=== PATIENT | female | born 1965 | race Caucasian/White ===

== ENCOUNTER → 2023-06-01 14:07 | Outpatient (REF) | payer BC, SELFPAY | LOC: WDC 14:07 | PROVIDERS: ATTENDING PHYSICIAN Obstetrics & Gynecology Gynecology; FAMILY PHYSICIAN Internal Medicine | DX: Z78.0 Asymptomatic menopausal state (principal); Z12.31 Encounter for screening mammogram for malignant neoplasm of breast | CPT/HCPCS: 77063; 77067; 77080 ==

== ENCOUNTER → 2024-06-07 16:01 | Outpatient (REF) | payer BC, SELFPAY | LOC: WDC 16:01 | PROVIDERS: ATTENDING PHYSICIAN Obstetrics & Gynecology Gynecology; FAMILY PHYSICIAN Internal Medicine | DX: Z12.31 Encounter for screening mammogram for malignant neoplasm of breast (principal) | CPT/HCPCS: 77063; 77067 ==

== ENCOUNTER 2024-08-29 15:01 | Inpatient (IN) | payer BC, SELFPAY ==
[2024-08-29 11:35] VITALS: BP 155/89
[2024-08-29 12:02] LABS: % Basophils 0.2 % (0-2); % Immature Granulocytes 0.5 % (0-0.5); % Lymphocytes 21.3 % (20.5-51.1); % Monocytes 7.6 % (1.7-9.3); % Neutrophils 67.4 % (42.2-75.2); Absolute Eosinophils 0.1 10^3/uL (0-0.7); Absolute Lymphocytes 0.9 10^3/uL (1.2-3.4); Absolute Monocytes 0.3 10^3/uL (0.1-0.6); Hematocrit 41.2 % (37.0-47.0); Hemoglobin 14.1 g/dL (12.0-16.0); Mean Corp Hgb Conc. 34.2 g/dL (33.0-37.0); Mean Corpuscular Hgb 31.3 pg (27.0-31.0); Mean Corpuscular Volume 91.6 fL (81.0-99.0); Mean Platelet Volume 9.2 fL (7.4-10.4); Nucleated Red Blood Cells % 0 %; Platelet Count 143 10^3/uL (130-400); Red Cell Dist. Width 11.9 % (11.5-14.5); White Blood Cell Count 4.4 10^3/uL (4.8-10.8)
--- NOTE | 2024-08-29 12:32 | ED.CVA ---
Addendum entered and electronically signed by Sky Cole MD 08/29/24 14:11:
I did discuss with neurosurgery who is okay with admission here. recommended MRI with and without as well at CT c/a/p. hospitalist updated.
Original Note:
History of Present Illness
General
Chief Complaint: CVA/TIA Symptoms
Time Seen by Provider: 08/29/24 12:04
Onset of Stroke Symptoms
Onset of symptoms known: No
Time pt last seen normal is known: No
History of Present Illness
History of Present Illness:
Patient is a 59-year-old woman with history of hypertension, hyperlipidemia presenting to the emergency department with speech problems. Patient states that about 2 weeks ago she started noticing that she had word finding difficulty and had to slow
down to speak. She states that she was having difficulty with texting and speaking. She also notes occasional dysarthria. Over the past few days she noticed difficulty swallowing. No history of strokes. No numbness tingling. No weakness.
Past History
Past History
ED Past Medical History: Other (mvp, chronic migraine headaches)
ED Past Surgical History: Other (Repair of pectus excavatum)
Social History
Tobacco: Non-smoker
Alcohol: None
Drug: None
Personal:
Living: with family
Employment: Employed
Family History
Family History: Hypertension
Phy Exam
Physical Exam
Physical Exam:
GENERAL: in no acute distress
HEENT: normocephalic, extraocular movements intact, moist oral mucosa
NECK: normal inspection
RESPIRATORY: no respiratory distress, clear to auscultation bilaterally
CARDIOVASCULAR: regular rate and rhythm
ABDOMEN/: soft, non-distended, non-tender to palpation, no rebound or guarding
EXTREMITIES: non-tender, no edema/swelling
NEUROLOGIC: alert and oriented x 3, cranial nerves II-XII intact, right upper extremity strength 5/5, left upper extremity strength 5/5, right lower extremity strength 5/5, left lower extremity strength 5/5, normal sensation to light touch, normal
nwzwwz-af-hnvo and pplo-hz-efnf, gait not tested formally
SKIN: warm
NIH Stroke Score
Level of Consciousness: 0 - Alert
LOC questions: 0-Answers both correctly
LOC Commands: 0-Performs both correctly
Best Gaze: 0-Normal
Visual Gasca: 0=Normal, no visual loss
Facial palsy: 0=Normal, symmetrical
Motor - Right Arm: 0=No drift 10 seconds
Motor - Left Arm: 0=No drift 10 seconds
Motor - Right Le-No drift 5 seconds
Motor - Left Le-No drift 5 seconds
Limb Ataxia: 0-Absent
Sensation: 0-Normal
Best Language: 1-Mild aphasia
Dysarthria: 0-Normal
Extinction and Inattention: 0-No abnormality
Total Score:: 1
Course
Orders/Labs/Results
Orders:
Orders
08/29/24 11:[address] [CT Head W/o Iv Contrast] Urgent
Comment:
Reason For Exam: slurred speech
08/29/24 11:46
Complete Blood Count/With Diff Urgent
Comprehensive Metabolic Panel Urgent
08/29/24 12:37
Electrocardiogram (*1) Urgent
Reason for Study: TIA/Stroke
EKG- Treatment ONCE
Abnormal Lab Results
08/29/24
11:46
WBC 4.4 L 10^3/uL
(4.8-10.8)
MCH 31.3 H pg
(27.0-31.0)
Absolute Lymphs (auto) 0.9 L 10^3/uL
(1.2-3.4)
Glucose 110 H mg/dl
(70-99)
08/29/24 11:46
08/29/24 11:46
Vital Signs
Initial and Last Documented VS:
Initial Vital Signs
Temp Pulse Resp BP Pulse Ox
98.4 F 73 18 155/89 98
08/29/24 11:35 08/29/24 11:35 08/29/24 11:35 08/29/24 11:35 08/29/24 11:35
Last Documented Vital Signs
Temp Pulse Resp BP Pulse Ox
98.4 F 63 16 137/80 97
08/29/24 11:35 08/29/24 12:45 08/29/24 12:45 08/29/24 12:39 08/29/24 12:45
MDM/Problems Addressed
Differential Diagnosis Includes:
Patient is a 59-year-old woman with history of hypertension, hyperlipidemia presenting to the emergency department with word finding difficulty and now difficulty with swallowing. On arrival vitals are unremarkable and exam does show mild aphasia.
Concern for CVA vs mass. Will obtain blood work and CT scan as well as EKG. Patient will need admission for further evaluation.
*Critical Care Note
Total Time (30-74mins, 75-104mins- exclusive of procedures): Not Applicable
Update Note
Update Note:
CT scan per my interpretation with a mass in the left parietal lobe. Per the official read it is about 3.8 cm. There is no shift or associated hemorrhage. Patient updated of these findings. Discussed with hospitalist who admitted patient to
their service.
ED Attending Note
-
Portions of this chart may have been created with voice recognition software.� Occasional wrong word or��sound alike� substitutions may have occurred due to the inherent limitations of voice recognition software.
Discharge Plan
Departure
Patient Disposition: Admit
Date of Disposition: 08/29/24
Time of Disposition: 13:55
Presentation/result/management discussed w/ accepting MD/DO: Hospitalist
Discharge Problem:
Brain mass
Prescriptions:
No Action
verapamil 120 MG tablet extended release
120 mg PO DAILY
alprazolam [Xanax XR] 2 MG tablet extended release 24 hr
1 mg PO DAILY
Lexapro
20 mg PO DAILY
mlztldumqd-rehjbodgsfhuh-asnt 1 TAB tablet
1 - 2 tab PO Q6HPRN PRN (Reason: headache) Qty: 20 0RF
ondansetron 4 MG tablet,disintegrating
8 mg PO Q8H PRN (Reason: nausea vomiting) Qty: 15 0RF
Referrals:
Kiki Miranda MD [Family Provider, Internal Medicine]
Interventions
Interventions:
*Risk Screen - Suicide Last Done: 08/29/24 11:35
*General Assessment Last Done: 08/29/24 11:35
*Neglect/Abuse Screening Last Done: 08/29/24 11:35
*ED- Fall Risk Assessment Last Done: 08/29/24 11:35
Discharge Date and Time
Print Language: PAKISTANI
[2024-08-29 12:34] LABS: ALT (SGPT) 19 U/L (0-35); AST (SGOT) 28 U/L (14-36); Albumin 4.9 g/dl (3.5-5.0); Alkaline Phosphatase 53 U/L (38-126); Blood Urea Nitrogen 15 mg/dl (7-17); Calcium 9.6 mg/dl (8.4-10.2); Carbon Dioxide 29 mmol/L (22-30); Chloride 105 mmol/L (98-107); Glucose 110 mg/dl (70-99); Potassium 4.4 mmol/L (3.5-5.1); Sodium 141 mmol/L (135-145); Total Bilirubin 0.9 mg/dl (0.2-1.3); eGFR > 60.00
[2024-08-29 12:39] VITALS: BP 137/80
[2024-08-29 14:08] VITALS: BP 169/82
--- NOTE | 2024-08-29 14:17 | HPS.HSE ---
Addendum entered and electronically signed by Rob Wise MD 08/30/24 08:52:
MR Brain W/o  With Contrast
CLINICAL INDICATION: Sxtic Lt parietal Gualberto complex mass
TECHNIQUE: 3 Sherice. Unenhanced and enhanced MRI imaging of the brain was performed. Precontrast sagittal and axial T1, as well as axial fast spin echo T2, FLAIR, and diffusion images were obtained. Postcontrast T1 axial and coronal images were also
obtained.
COMPARISON: CT head 08/29/2024
FINDINGS:
Left parietal lobe mass measures 3.7 x 3.6 x 3.5 cm, heterogeneously T1 hypointense and T2 hyperintense with scattered peripheral hemosiderin components and thick irregular rim enhancement. Minimal lateral eccentric component of restricted
diffusion. Prominent surrounding vasogenic edema.
The ventricles and sulci are normal in size and configuration. There is no midline shift, or extra axial collection.
There is no additional abnormal parenchymal or meningeal enhancement. There is no abnormal signal intensity on diffusion-weighted images to suggest acute infarct.
The vascular structures at the skull base are unremarkable, as far as visualized. The sinuses and mastoids are clear.
IMPRESSION:
3.7 cm rounded rim-enhancing left parietal lobe mass with surrounding vasogenic edema, most in keeping with neoplasm such as primary glioma versus metastasis (less likely). No midline shift or herniation. Of note, no other apparent primary neoplasm
was identified on same-day staging CT.
No additional enhancing intracranial lesions.
Results sent to Dr. Oliveira 08/29/2024 at 9:43 PM.
Electronically signed by Dhruv Mensah, 08/29/2024 9:44 PM
Original Note:
Family Physician
-
Family Physician: Kiki Miranda
Chief Complaint
-
abnormal speech
History of Present Illness
59F HX hypertension, hyperlipidemia seen at ER:
- pw speech problems
- about 2 weeks ago she started noticing that she had word finding difficulty and had to slow down to speak. S
- also difficulty with texting and speaking
- reports occasional dysarthria.
- last few days she noticed difficulty swallowing
- No numbness tingling. No weakness.
- No prior strokes.
Medical History
Past Medical History
Past Medical History: Reports HTN, Hypercholesterolemia, Valvular Disease (MVP ) and Psychiatric (anxiety /depression )
Additional Past Medical History:
chronic migraine headaches
Past Surgical History: Reports Orthopedic (Repair of pectus excavatum)
Social History
Tobacco: Non-smoker
Alcohol: None
Personal:
Living: With Family
Family History
Family History: Not pertinent
Allergies / Home Medications
Allergies reflects when Allergies were last updated in [facility].
Home Medications with original date entered in [facility]
Allergy/Medication List:
Allergies
Allergy/AdvReac Type Severity Reaction Status Date / Time
No Known Allergies Allergy Verified 01/28/22 18:59
Home Medications
Lexapro 20 mg PO DAILY 09/08/12
alprazolam 2 mg tablet,extended release 24 hr (Xanax XR) 1 mg PO DAILY 09/08/12
zbsxsqnrwl-xzrzznuaxnoei-qrqfivcc 50 mg-325 mg-40 mg tablet 1 - 2 tab PO Q6HPRN PRN headache #20 tabs 09/08/12
ondansetron 4 mg disintegrating tablet 8 mg (2 x 4 mg) PO Q8H PRN nausea vomiting #15 tabs 09/08/12
verapamil 120 mg tablet,extended release 120 mg PO DAILY 09/08/12
If medication reconciliation has not been performed, why?: Other (pending reconciliation )
Review of Systems
-
Constitutional: Reports No Symptoms
EENT: Reports No Symptoms
Respiratory: Reports No Symptoms
Cardiac: Reports No Symptoms
Abdomen/GI: Reports No Symptoms
: Reports No Symptoms
Musculoskeletal: Reports No Symptoms
Skin: Reports No Symptoms
Neurological: Reports See HPI
Endocrine: Reports No Symptoms
Hematologic/Lymphatic: Reports No Symptoms
Psych: Reports No Symptoms
Physical Exam
Vital Signs
Vital Signs
Temp Pulse Resp BP Pulse Ox
98.4 F 63 16 137/80 97
08/29/24 11:35 08/29/24 12:45 08/29/24 12:45 08/29/24 12:39 08/29/24 12:45
Physical Exam
General: Well Developed, Well Nourished and No Apparent Distress
HEENT: NormoCephalic, Moist mucous membranes and Atraumatic
Respiratory: Clear
Cardiac: S1/S2 and Regular Rhythm; No Murmur or Rub
GI: Soft, Non Tender, Non Distended and Normal Bowel Sounds; No Organomegaly
Rectal: Deferred by Provider
Musculoskeletal: No Clubbing, No Cyanosis and No Edema
Skin: No Rash
Neuro: Other (see NIH score )
Laboratory Results
-
08/29/24 11:46
08/29/24 11:46
Laboratory Results
Total Bilirubin 0.9 mg/dl (0.2-1.3) 08/29/24 11:46
AST 28 U/L (14-36) 08/29/24 11:46
ALT 19 U/L (0-35) 08/29/24 11:46
Alkaline Phosphatase 53 U/L (38-126) 08/29/24 11:46
Data Reviewed
-
CT Scan: Report Reviewed by me
Lab Data: Labs Reviewed by me
Impression/Plan
-
Vital Signs
Temp Pulse Resp BP Pulse Ox
98.4 F 63 16 137/80 97
08/29/24 11:35 08/29/24 12:45 08/29/24 12:45 08/29/24 12:39 08/29/24 12:45
Abnormal Lab Results
08/29/24
11:46
WBC 4.4 L
MCH 31.3 H
Absolute Lymphs (auto) 0.9 L
Glucose 110 H
HCT
- s a low-attenuation mass with a high attenuation rim in the left lateral parietal lobe measuring approximately 3.8 cm.
- The ventricles and cortical sulci are normal in size and position.
- no shift of midline structures. There is no evidence of hemorrhage.
- The skull is intact. Paranasal sinuses are clear.
Pending CT Chest/ Abdomen and pelvis
NIH score by ER
Level of Consciousness: 0 - Alert
LOC questions: 0-Answers both correctly
LOC Commands: 0-Performs both correctly
Best Gaze: 0-Normal
Visual Gasca: 0=Normal, no visual loss
Facial palsy: 0=Normal, symmetrical
Motor - Right Arm: 0=No drift 10 seconds
Motor - Left Arm: 0=No drift 10 seconds
Motor - Right Le-No drift 5 seconds
Motor - Left Le-No drift 5 seconds
Limb Ataxia: 0-Absent
Sensation: 0-Normal
Best Language: 1-Mild aphasia
Dysarthria: 0-Normal
Extinction and Inattention: 0-No abnormality
Total Score:: 1
NO PRIOR hospitalist admission:
ASSESSMENT & PLAN
Lt parietal lobe 3.8cm complex mass 3.8 cm
- acute speech and language dysfunctiiion
- No shift of midline structures.
- No evidence of hemorrhage.
- Associated speech and language dysfunction with NIH score one
- CT Chest/ Abdomen and pelvis
- Brain MRI in AM
- Sz prophylaxis with Keppra - case , ER d/w N Surgeon
- Neuro surgeon consulted - suggest to keep in DH and further w/u
- Speech to eval and Tx - holding off PO diet till evaluation
Essential HTN
- Pending Rx reconciliation ( on Verapamil ? )
Hyperlipidemia
- Pending Rx reconciliation ( On Rosuvastatin ? )
Depression
- Pending Rx reconciliation (on Lexapro , Xanax PRN ? )
- Hold Lexapro due to risk of lowering Sz threshold of SSRI
DVT Px: SCD
Full Code:
IP TLM
[2024-08-29 15:04] VITALS: BMI 20.1
[2024-08-29] MEDS: OMNIPAQUE 50 ML PO (16:05)
[2024-08-29 16:27] VITALS: BP 154/80; BMI 19.0
[2024-08-29 19:25] VITALS: BP 154/87
[2024-08-29] MEDS: KEPPRA 500 MG PO (21:21)
[2024-08-29] MEDS: CRESTOR 5 MG PO (21:21)
[2024-08-29 23:22] VITALS: BP 145/86
--- NOTE | 2024-08-30 00:15 | W.PN.UPDATE ---
Update Note
Progress Note Update
MRI Brain, completed. Results sent to Dr. Oliveira 08/29/24 @ 9:[address] Wise aware of results, no new orders at this time.
[2024-08-30] MEDS: CALAN EXTENDED RELEASE 120 MG PO (00:58)
[2024-08-30] MEDS: XANAX 0.5 MG PO ×2 (01:00→12:10)
[2024-08-30 03:18] VITALS: BP 110/71
[2024-08-30 07:00] VITALS: BP 119/79
[2024-08-30 07:30] LABS: Blood Urea Nitrogen 13 mg/dl (7-17); Calcium 9.6 mg/dl (8.4-10.2); Carbon Dioxide 32 mmol/L (22-30); Chloride 104 mmol/L (98-107); Estimated Creatinine Clearance 68 ml/min; Glucose 93 mg/dl (70-99); Potassium 4.2 mmol/L (3.5-5.1); Sodium 142 mmol/L (135-145); eGFR > 60.00
[2024-08-30 07:31] LABS: % Basophils 0.9 % (0-2); % Eosinophils 4.9 % (0-6); % Immature Granulocytes 0.4 % (0-0.5); % Lymphocytes 22.5 % (20.5-51.1); % Monocytes 8.6 % (1.7-9.3); % Neutrophils 62.7 % (42.2-75.2); Absolute Eosinophils 0.2 10^3/uL (0-0.7); Absolute Monocytes 0.4 10^3/uL (0.1-0.6); Absolute Neutrophils 2.8 10^3/uL (1.4-6.5); Hematocrit 40.9 % (37.0-47.0); Hemoglobin 13.9 g/dL (12.0-16.0); Mean Corpuscular Hgb 31.2 pg (27.0-31.0); Mean Corpuscular Volume 91.9 fL (81.0-99.0); Mean Platelet Volume 9.4 fL (7.4-10.4); Nucleated Red Blood Cells % 0 %; Platelet Count 144 10^3/uL (130-400); Red Blood Cell Count 4.45 10^6/uL (4.20-5.40); Red Cell Dist. Width 11.9 % (11.5-14.5); White Blood Cell Count 4.5 10^3/uL (4.8-10.8)
[2024-08-30] MEDS: KEPPRA 500 MG PO (08:25)
[2024-08-30] MEDS: CALAN EXTENDED RELEASE PO (09:05)
[2024-08-30] MEDS: XANAX PO (09:06)
--- NOTE | 2024-08-30 09:17 | W.PN.HOSP.TC ---
Today's Communication/Plan
-
Await neurosurgery input
Consulted oncology
Assessment / Plan
Assessment / Plan
Physical Exam
General: Well Developed, Well Nourished and No Apparent Distress
HEENT: Normocephalic, Moist mucous membranes and Atraumatic
Respiratory: Clear
Cardiac: S1/S2 and Regular Rhythm; No Murmur or Rub
GI: Soft, Non Tender, Non Distended
Rectal: Deferred by Provider
Musculoskeletal: No Clubbing, No Cyanosis and No Edema
Skin: No Rash
Neuro:AAOX3, she followed commands, non focal, speech is coherent but seems to struggle to find words at time.
Psych: calm.
A/P:
# 3.7 cm rounded rim-enhancing left parietal lobe mass with surrounding vasogenic edema, most in keeping with neoplasm such as primary glioma versus metastasis (less likely). No midline shift or herniation. Of note, no other apparent primary
neoplasm was identified on same-day staging CT. No additional enhancing intracranial lesions.Lt parietal lobe 3.8cm complex mass 3.8 cm
She was noticed to have word finding difficulty, also problems in writing.
- CT Chest/ Abdomen and pelvis: no evidence of primary lesion.
- Sz prophylaxis with Keppra - case , ER d/w N Surgeon
- Neuro surgeon consulted - suggest to keep in DH and further w/u
- Speech to eval and Tx -ok for diet
- Consulted oncology
- will likely need steroid but will wait until consultants evaluate the pt.
# Essential HTN
#Hyperlipidemia
- Pending Rx reconciliation ( On Rosuvastatin ? )
# Depression
Mood is cooperative.
Total time spent to see the patient, examine the patient, review data and lab result, discuss treatment plan with patient, nursing staff around 55 minutes
Anticipated Discharge: Within 24 hours
Subjective/Interval History
-
Date of Service: August 30, 2024
No chest pain
No sob
Speech is the same
No headache
Objective Data
-
Labs:
Laboratory Results
08/30/24
06:03
WBC 4.5 L
Hgb 13.9
Hct 40.9
Plt Count 144
Sodium 142
Potassium 4.2
Chloride 104
Carbon Dioxide 32 H
BUN 13
Creatinine 0.7
Glucose 93
Calcium 9.6
Vital Signs:
Vital Signs
Temp Pulse Resp BP Pulse Ox
99.7 F 79 20 119/79 96
08/30/24 07:00 08/30/24 07:00 08/30/24 07:00 08/30/24 07:00 08/30/24 07:00
I&O
08/29/24 08/30/24 08/31/24
06:59 06:59 06:59
Intake Total 720 / 720
Balance 720 / 720
[2024-08-30 10:14] VITALS: BP 116/69; BP 127/76; PULSE 78; O2SAT 98
--- NOTE | 2024-08-30 11:11 | CON.NS ---
Consultation
-
Date/Time Consultation Performed: 08/30/24
Chief Complaint
-
brain tumor, speech changes
History of Present Illness
This is a 59 yo female who presented with 2 weeks of speech difficulties. She presented to the ED yesterday due to these complaints. A CT head was completed which showed a left frontal mass. Ct C/A/P was completed which showed no primary. MRI brain
has been completed and is available to review. She denies any Ue/Le weakness. She denies any n/t in her UE or LE's.
Review of Systems
-
10 pt ROS was completed and is negative except as stated
Medication and Allergies
Home Medications
Home Medications
�Medication �Instructions �Recorded
escitalopram oxalate 10 mg tablet 10 mg PO DAILY 09/08/12
(Lexapro)
verapamil 120 mg tablet,extended 120 mg PO HS 09/08/12
release
alprazolam 1 mg tablet,extended 1 mg PO HS 08/29/24
release 24 hr (Xanax XR)
ascorbic acid (vitamin C) 500 mg 500 mg PO DAILY 08/29/24
tablet (Vitamin C)
cholecalciferol (vitamin D3) 25 25 mcg PO DAILY 08/29/24
mcg (1,000 unit) tablet (Vitamin
D3)
cyanocobalamin (vitamin B-12) 1,000 mcg PO DAILY 08/29/24
1,000 mcg tablet
rosuvastatin 5 mg tablet (Crestor) 5 mg PO HS 08/29/24
Allergies
Allergies
Allergy/AdvReac Type Severity Reaction Status Date / Time
No Known Allergies Allergy Verified 01/28/22 18:59
Physical Exam
-
Exam:
AAoX3
CN's 2-12 intact
MAEx4 equally
sensory intact
speech with some mild aphasia
MRi brain shows 3.1x3.2x3.7 cm left frontal brain tumor with peripheral enhancement and surrounding edema. There is a MCA en passage branch at the inferior border, and some involvement of the sylvian veins
Problems
-
Problem Status Onset Code
Brain mass Acute G93.89
Assessment / Plan
-
Brain tumor
-suspect this is a Glioblastoma given imaging characteristics
-This requires surgical intervention. D/W patient role of resection.I explained the risks of surgery to her. She wishes to discuss with her family her options at this time
-rec to start decadron 4 q 6 now
-continue keppra
-if she desires surgery at [facility] we will need to transfer, please notify familys decision
[2024-08-30] MEDS: LEXAPRO 10 MG PO (11:14)
--- NOTE | 2024-08-30 11:14 | PTOTSP ---
Speech Therapy Assessment
Swallowing deemed wfl with no overt signs of aspiration. No obvious oral motor weakness or disorganized oral processing/swallow sequence.
Though communication is wfl, the patient presents with evidence for mild expressive and receptive language deficits including phonemic paraphasias, anomia in conversation, agraphia and high level auditory/reading comprehension and suspicion for mild
verbal apraxia.
Recommend:
1. Regular solids and thin liquids
2. General precautions (upright, clear mouth before liquids, no talking when eating)
3. Outpatient speech therapy to further assess and address language/speech deficits of which patient is interested in pursuing. Patient was provided with brochure on outpatient brain injury program and alerted CM of recommendations.
[2024-08-30 11:30] VITALS: BP 155/75
[2024-08-30] MEDS: DECADRON 4 MG PO ×2 (12:08→18:03)
--- NOTE | 2024-08-30 12:39 | CON.ONC ---
Consultation
-
Date Consultation Requested: 08/29/24
Date Consultation Performed: 08/30/24
Requesting Provider: Rob huynh
Performing Provider: Carmen Diaz
Reason for Consultation: Intracranial mass
Impression
Impression
59-year-old female presented for 2 weeks of speech difficulties, CT head demonstrated a left parietal mass. MRI brain demonstrated 3.7 cm round rim-enhancing left parietal lobe mass with surrounding vasogenic edema. CT abdomen pelvis with IV
contrast demonstrated no additional masses or metastasis. Working diagnosis is this is likely a primary intracranial malignancy, high-grade glioblastoma is suspected.
Plan
Plan
#Primary intracranial malignancy
#Word finding difficulties
Patient presented with 2 weeks of speech, texting, writing, spelling, comprehension, recall difficulties in addition to mild headaches. Denies numbness tingling or weakness on the right side
CT Emergency Department demonstrated left parietal lobe mass
MRI brain with and without contrast demonstrated 3.7 cm round rim-enhancing left parietal lobe mass with surrounding vasogenic edema. No midline shift or herniation
CT abdomen pelvis with IV contrast did not demonstrate any additional masses or metastatic lesions
Cannot be sure of etiology without pathology, based off imaging, suspect this is likely primary glioblastoma
Her symptoms are consistent with location of intracranial malignancy. Believe they are secondary to mass effect of lesion
Neurosurgery consulted and following
Will initiate patient on steroids per neurosurgery
Patient reports no seizures, currently receiving prophylactic Keppra, will continue
Patient will require craniotomy and resection for pathology and cytogenetics
Patient currently pending decision whether she would like to be transferred to [facility], discharged and follow-up with [facility], or be discharged and get a second opinion to follow-up elsewhere for surgery
Explained patient will likely require adjuvant regiment of chemotherapy (TMZ) and radiation
Patient reports she lives in [place], and would be willing to follow-up with [facility] and [facility] radiation oncology for adjuvant treatment
Will continue to follow along
Patient History
History of Present Illness
59-year-old female past close of hypertension, hyperlipidemia presented to [facility] emergency department with approximately 2 weeks of speech difficulties, she also endorses comprehension difficulties, recall, difficulty with spelling, writing and
texting. Patient also endorsed occasional mild headaches. In the emergency department patient received CT head without IV contrast which demonstrated low attenuating mass in the left parietal lobe measuring 3.8 cm. Patient received brain MRI with
and without contrast which demonstrated 3.7 cm rounded rim-enhancing left parietal lobe mass with surrounding vasogenic edema. Differential was primary glioblastoma versus metastasis. CT abdomen pelvis with contrast did not demonstrate any other
metastases or primary masses. Medical oncology was consulted regarding primary intracranial malignancy.
Past-Medical/Surgical History
Orthopedic: Repair of pectus excavatum
Patient Medication
�Medication �Instructions �Recorded �Confirmed �Last Taken �Type
escitalopram oxalate 10 mg tablet 10 mg PO DAILY 09/08/12 08/29/24 08/29/24 History
(Lexapro)
verapamil 120 mg tablet,extended 120 mg PO HS 09/08/12 08/29/24 08/28/24 History
release
alprazolam 1 mg tablet,extended 1 mg PO HS 08/29/24 08/29/24 08/28/24 History
release 24 hr (Xanax XR)
ascorbic acid (vitamin C) 500 mg 500 mg PO DAILY 08/29/24 08/29/24 08/29/24 History
tablet (Vitamin C)
cholecalciferol (vitamin D3) 25 25 mcg PO DAILY 08/29/24 08/29/24 08/28/24 History
mcg (1,000 unit) tablet (Vitamin
D3)
cyanocobalamin (vitamin B-12) 1,000 mcg PO DAILY 08/29/24 08/29/24 08/29/24 History
1,000 mcg tablet
rosuvastatin 5 mg tablet (Crestor) 5 mg PO HS 08/29/24 08/29/24 08/28/24 History
Active Medications
Generic Name Dose Route Start Last Admin
Trade Name Freq PRN Reason Stop Dose Admin
Acetaminophen 650 mg 08/29/24 16:28
Acetaminophen 325 Mg Tablet PO 09/26/24 16:27
[id number] PRN
mild pain/GUTIERREZ/temp> 100.4F
Alprazolam 1 mg 08/30/24 22:00
Alprazolam 1 Mg Tablet PO 09/27/24 21:59
HS DEBORAH
Bisacodyl 10 mg 08/29/24 16:28
Bisacodyl 10 Mg Rectal Suppository RECTAL 09/26/24 16:27
[id number] PRN
constipation
Dexamethasone 4 mg 08/30/24 12:00 08/30/24 12:08
Dexamethasone 4 Mg Tablet PO 09/27/24 11:59 4 mg
Q6H DEBORAH Administration
Escitalopram Oxalate 10 mg 08/30/24 11:00 08/30/24 11:14
Escitalopram 10 Mg Tablet PO 09/27/24 10:59 10 mg
DAILY DEBORAH Administration
Levetiracetam 500 mg 08/29/24 20:00 08/30/24 08:25
Levetiracetam 500 Mg Regular Release Tablet PO 09/26/24 19:59 500 mg
BID DEBORAH Administration
Polyethylene Glycol 17 grams 08/29/24 16:28
Polyethylene Glycol Powder 17 Grams Packet PO 09/26/24 16:27
DAILYPRN PRN
constipation
Rosuvastatin Calcium 5 mg 08/29/24 22:00 08/29/24 21:21
Rosuvastatin (Crestor) 5 Mg Tablet PO 09/26/24 21:59 5 mg
HS DEBORAH Administration
Senna/Docusate Sodium 1 tablet 08/29/24 16:28
Docusate W/Senna (Sonia-Colace) Tablet PO 09/26/24 16:27
BIDPRN PRN
constipation
Sodium Chloride 0 flush 08/29/24 17:00
Sodium Chloride 0.9% (Flush) Syringe IV 09/26/24 16:59
PER PROTOCOL DEBORAH
Verapamil HCl 120 mg 08/30/24 22:00
Verapamil 120 Mg (Extended Release) Tablet PO 09/27/24 21:59
HS DEBORAH
Review of Systems
-
History Source: Patient
Constitutional: Reports No Symptoms; Denies Weakness
EENT: Reports No Symptoms
Respiratory: Reports No Symptoms
Cardiac: Reports No Symptoms
GI: Reports No Symptoms
Neuro: Reports Headache and Other (Denies numbness and tingling or weakness on the right side. Endorses 2 and half weeks of speech, comprehension, recall, texting, writing, spelling difficulties)
Psych: Reports Sad
Physical Exam
-
General: Comfortable and Conversant
HEENT: Negative Jaundice
Musculoskeletal: No Edema
Neurology: Other (Reports word finding difficulties, texting, writing, spelling, comprehension, recall difficulties approximately 2-1/2 weeks in duration)
Skin: Dry
Psych: Intact Judgement/Insight and Other (Tearful)
Labs
Lab Results
WBC 4.5 10^3/uL (4.8-10.8) L 08/30/24 06:03
RBC 4.45 10^6/uL (4.20-5.40) 08/30/24 06:03
Hgb 13.9 g/dL (12.0-16.0) 08/30/24 06:03
Hct 40.9 % (37.0-47.0) 08/30/24 06:03
MCV 91.9 fL (81.0-99.0) 08/30/24 06:03
MCH 31.2 pg (27.0-31.0) H 08/30/24 06:03
MCHC 34.0 g/dL (33.0-37.0) 08/30/24 06:03
RDW 11.9 % (11.5-14.5) 08/30/24 06:03
Plt Count 144 10^3/uL (130-400) 08/30/24 06:03
MPV 9.4 fL (7.4-10.4) 08/30/24 06:03
Abs Immat Gran (auto) 0.0 10^3/uL (0-0.05) 08/30/24 06:03
Absolute Neuts (auto) 2.8 10^3/uL (1.4-6.5) 08/30/24 06:03
Absolute Lymphs (auto) 1.0 10^3/uL (1.2-3.4) L 08/30/24 06:03
Absolute Monos (auto) 0.4 10^3/uL (0.1-0.6) 08/30/24 06:03
Absolute Eos (auto) 0.2 10^3/uL (0-0.7) 08/30/24 06:03
Absolute Basos (auto) 0.0 10^3/uL (0-0.2) 08/30/24 06:03
Immature Gran % 0.4 % (0-0.5) 08/30/24 06:03
Neutrophils % 62.7 % (42.2-75.2) 08/30/24 06:03
Lymphocytes % 22.5 % (20.5-51.1) 08/30/24 06:03
Monocytes % 8.6 % (1.7-9.3) 08/30/24 06:03
Eosinophils % 4.9 % (0-6) 08/30/24 06:03
Basophils % 0.9 % (0-2) 08/30/24 06:03
Creatinine 0.7 mg/dL (0.6-1.0) 08/30/24 06:03
Vital Signs
Vital Signs
Temp Pulse Resp BP Pulse Ox
98.1 F 88 16 155/75 98
08/30/24 11:30 08/30/24 11:30 08/30/24 11:30 08/30/24 11:30 08/30/24 11:30
--- NOTE | 2024-08-30 14:22 | CM ---
Patient seen at bedside with
explained role of CM-offered emotional support as patient and tearful
IA completed
Dx: Brain tumor
Patient lives with her in a 2 story home, 2 steps to enter, flight to second floor bed/bath
PLOF: independent
Denies DME
Denies VN/Rehab
PCP: Kiki Miranda
Pharmacy: [address], [place]
PLAN: transfer to [place] when bed available
--- NOTE | 2024-08-30 14:35 | W.PN.UPDATE ---
Update Note
Progress Note Update
Addendum
Met with family and patient again. Patient decided to seek treatment at [facility]
I talked to the transfer center, neurosurgery on-call Dr. Tish Evans. She accepted the patient.
Patient consented to transfer. Discussed with nursing staff.
Total discharge time spent to see the patient, examine the patient, review data and lab result, discuss discharge plan with patient, nursing staff around 65 minutes
--- NOTE | 2024-08-30 15:32 | W.DCSUMMARY ---
Discharge Summary
Discharge Data
Date of Admission: 08/29/24
Date of Discharge: 08/30/24
-
Pending Results: No
Hospital Course
59 years old female admitted with 2 weeks history of word finding difficulty and writing difficulty. Symptoms also noticed by her family. No focal motor deficits and extremities. No sensory deficit. Patient reported sometimes fogginess but no
blurred vision or significant headaches. Scan of the head showed complex mass on the left side. MRI of the brain with and without contrast showed 3.7 cm ring-enhancing lesion left parietal lobe consistent with primary neoplasm. Patient had a scan
of the chest/abdomen/pelvis with no evidence of primary lesion. Patient was evaluated by oncology. She was evaluated by neurosurgery. Recommendation to pursue surgical resection for likely glioma tumor. Patient was started on Decadron and
prophylactic Keppra. Patient remained hemodynamically stable. Neurosurgery offered to transfer to [facility] for further neurosurgical intervention if patient decided to continue management locally. Patient and family decided to pursue
further management at [facility]. Neurosurgery doctor on-call Dr. Tish Evans accepted the patient for transfer. Patient consented to the transfer. Patient was transferred in stable condition.
Discharge Plan
-
Patient Disposition: Acute Care Hospital
Discharge Orders:
Discharge Patient (As Directed); Ordered 08/30/24
Ordered By: Solis Deal
Discharge Date and Time
Discharge Date/Time: 08/30/24 19:17
Print Language: FRISIAN
[2024-08-30 15:35] VITALS: BP 128/79
--- NOTE | 2024-08-30 16:00 | CHAP ---
[facility] in [place] gave Dee the Sacrament of the Sick and Holy Communion. Exact time uncertain.
[2024-08-30 19:03] VITALS: BP 119/85
== END 2024-08-30 19:17 | disposition short-term general hospital (02) | DRG 54 ==
LOC: 3 WEST ACU 15:01
PROVIDERS: Emergency Medicine; ADMITTING PHYSICIAN Internal Medicine; ATTENDING PHYSICIAN Internal Medicine; CONSULT PHYSICIAN Neurological Surgery; EMERGENCY PHYSICIAN Student in an Organized Health Care Education/Training Program; FAMILY PHYSICIAN Internal Medicine; OTHER PHYSICIAN Internal Medicine Hematology & Oncology
DX: C71.9 Malignant neoplasm of brain, unspecified (principal); G93.6 Cerebral edema; I10 Essential (primary) hypertension; F32.A Depression, unspecified; E78.00 Pure hypercholesterolemia, unspecified; G93.89 Other specified disorders of brain
CPT/HCPCS: 70450; 70553; 71260; 74177; 80048; 80053; 85025; 92523; 92610; 93005; 97116; 97163; 99285; A9575; Q9967

== ENCOUNTER 2025-02-10 09:16 | Emergency (ER) | payer BC, SELFPAY ==
[2025-02-10] VITALS (9 sets, daily range): BP systolic 111–146; BP diastolic 67–101; PULSE 70–76; BMI 18.3
--- NOTE | 2025-02-10 11:26 | ED.GENMED ---
History of Present Illness
<Laura John MD, Resident - Last Filed: 02/10/25 15:20>
General
Chief Complaint: Fainting/Passed Out
Source: patient and family
Time Seen by Provider: 02/10/25 11:09
History of Present Illness
History of Present Illness:
58yo F with a hx of L parietal tumor (s/p resection, radiation therapy, intracranial CAR-T catheter implantation), recent UTI, HTN, & recent orthostatic hypotension who presents following lightheadness & syncopal episode at home.
Pt was recently discharged from [facility] ~2 weeks ago s/p placement of intracranial CAR-T catheter w monthlong hospitalization c/b UTI and orthostatic hypotension.
Pt was treated inpatient with 1 week IV abx for UTI. Endorses ongoing dysuria t home. Denies any fever/chills. Pt was discharged on midodrine for orthostasis, which she has continued taking since. She was also discharged on a dexamethasone taper,
which she stopped 2 days ago. Per pt & family at bedside, pt has been experiencing worsening of her aphasia over the last few days, along with worsening lightheadedness and dizziness. Feels like room is spinning occasionally. Has also been
experiencing blurriness of R eye vision since CAR-T catheter implantation.
Today, as she was on her way back from the bathroom, she saw black spots in her vision and fell to the floor with LOC. She awoke spontaneously and walked back to her chair. Denies any residual GUTIERREZ or vision changes or pain in head. Unsure if she hit
her head. Denies constipation, was not straining on toilet. Had recently stood up from toilet before episode. Denies any palpitations or racing heart at time of episode. Endorses sensation of dizziness worse with turning her head to the R. Endorses
recent changes in hearing, for which she has been seeing ENT at [facility].
Past History
<Laura John MD, Resident - Last Filed: 02/10/25 15:20>
Past History
ED Past Medical History: Other (mvp, chronic migraine headaches)
ED Past Surgical History: Other (Repair of pectus excavatum)
Social History
Tobacco: Non-smoker
Alcohol: None
Drug: None
Personal:
Living: with family
Employment: Employed
Family History
Family History: Hypertension
Review of Systems
<Laura John MD, Resident - Last Filed: 02/10/25 15:20>
Review of Systems
Allergies reviewed?: Yes
All Other Systems: ROS reviewed and negative except as documented in HPI and ROS
Constitutional: Reports no symptoms
EENT: Reports no symptoms
Respiratory: Reports no symptoms
Cardiac: Reports no symptoms
ABD/GI: Reports no symptoms
: Reports dysuria
Musculoskeletal: Reports no symptoms
Skin: Reports no symptoms
Neurological: Reports dizzy
Psychiatric: Reports no symptoms
Phy Exam
<Laura John MD, Resident - Last Filed: 02/10/25 15:20>
General Physical Exam
General Presentation: well appearing and no apparent distress
General age: appears older than age
General Skin: warm and dry
General Habitus: frail
General Mental: alert
Cardiovascular Exam
Cardiovascular Exam: regular rate/rhythm and no edema
Heart Sounds: normal
Pulmonary Exam
Pulmonary Exam: no respiratory distress
Gastrointestinal Exam
Gastrointestinal Exam: non distended
Neurological Exam
Neurological Exam: alert, expressive aphasia and other (no vertical or horizontal nystagmus )
Psychiatric Exam
Psychiatric Exam: normal mood/affect
Course
<Laura John MD, Resident - Last Filed: 02/10/25 15:20>
Orders/Labs/Results
Orders:
Orders
02/10/25 09:34
Electrocardiogram (*1) Urgent
Reason for Study: Chest Pain
EKG- Treatment ONCE
02/10/25 11:47
CT Head W/o Iv Contrast Urgent
Comment: recent brain surgery
Reason For Exam: recent fall, headache
0.9% Sodium Chloride 1000 ml [Nss] 1,000 ml IV BOLUS
02/10/25 11:49
Meclizine [Antivert] 25 mg PO NOW STA
02/10/25 11:53
Orthostatic VS- Treatment ONCE
02/10/25 12:14
Complete Blood Count/With Diff Urgent
Comprehensive Metabolic Panel Urgent
02/10/25 14:41
Urinalysis Reflex To Culture Urgent
Date Specimen was Collected: 02/10/25
Time Specimen was Collected: 11:50
Abnormal Lab Results
02/10/25
12:14
RBC 4.13 L 10^6/uL
(4.20-5.40)
MCHC 32.7 L g/dL
(33.0-37.0)
Abs Immat Gran (auto) 0.1 H 10^3/uL
(0-0.05)
Immature Gran % 0.7 H %
(0-0.5)
Lymphocytes % 19.6 L %
(20.5-51.1)
Sodium 134 L mmol/L
(135-145)
Creatinine 0.5 L mg/dL
(0.6-1.0)
Total Protein 6.2 L g/dl
(6.3-8.2)
02/10/25 12:14
02/10/25 12:14
Vital Signs
Initial and Last Documented VS:
Initial Vital Signs
Temp Pulse Resp BP Pulse Ox
98.9 F 91 20 123/75 99
02/10/25 09:23 02/10/25 09:23 02/10/25 09:23 02/10/25 09:23 02/10/25 09:23
Last Documented Vital Signs
Temp Pulse Resp BP Pulse Ox
98.9 F 69 15 123/75 100
02/10/25 09:23 02/10/25 12:15 02/10/25 12:15 02/10/25 09:23 02/10/25 12:15
<Castro Taylor, DO - Last Filed: 02/10/25 13:29>
Orders/Labs/Results
Orders:
Orders
02/10/25 09:34
Electrocardiogram (*1) Urgent
Reason for Study: Chest Pain
EKG- Treatment ONCE
02/10/25 11:47
CT Head W/o Iv Contrast Urgent
Comment: recent brain surgery
Reason For Exam: recent fall, headache
0.9% Sodium Chloride 1000 ml [Nss] 1,000 ml IV BOLUS
02/10/25 11:49
Meclizine [Antivert] 25 mg PO NOW STA
02/10/25 11:53
Orthostatic VS- Treatment ONCE
02/10/25 12:14
Complete Blood Count/With Diff Urgent
Comprehensive Metabolic Panel Urgent
02/10/25 14:41
Urinalysis Reflex To Culture Urgent
Date Specimen was Collected: 02/10/25
Time Specimen was Collected: 11:50
Abnormal Lab Results
02/10/25
12:14
RBC 4.13 L 10^6/uL
(4.20-5.40)
MCHC 32.7 L g/dL
(33.0-37.0)
Abs Immat Gran (auto) 0.1 H 10^3/uL
(0-0.05)
Immature Gran % 0.7 H %
(0-0.5)
Lymphocytes % 19.6 L %
(20.5-51.1)
Sodium 134 L mmol/L
(135-145)
Creatinine 0.5 L mg/dL
(0.6-1.0)
Total Protein 6.2 L g/dl
(6.3-8.2)
02/10/25 12:14
02/10/25 12:14
Vital Signs
Initial and Last Documented VS:
Initial Vital Signs
Temp Pulse Resp BP Pulse Ox
98.9 F 91 20 123/75 99
02/10/25 09:23 02/10/25 09:23 02/10/25 09:23 02/10/25 09:23 02/10/25 09:23
Last Documented Vital Signs
Temp Pulse Resp BP Pulse Ox
98.9 F 69 15 123/75 100
02/10/25 09:23 02/10/25 12:15 02/10/25 12:15 02/10/25 09:23 02/10/25 12:15
<Laura John MD, Resident - Last Filed: 02/10/25 15:20>
MDM/Problems Addressed
Differential Diagnosis Includes:
Ddx:
Labryinthitis
Orthostasis
BPPV
Vasovagal syncope
Arrhythmia
SE from intracranial car-t catheter
Withdrawal from steroids
UTI
R/o unstable arrhythmia
R/o intracranial hemorrhage
MDM/Problems Addressed:
Plan:
- Orthostatic vitals
- CBC, CMP
- Bolus NSS
- Zofran, meclizine
- CT head w/o contrast
- EKG
- Recommend f/u w neurosurg & ENT & oncology
Chronic conditions affecting care:
parietal tumor s/p resection, radiation, w implanted car-t catheter
Chronic conditions affecting care: Cancer
<Laura John MD, Resident - Last Filed: 02/10/25 15:20>
*Radiology
Radiology exam reviewed: preliminary read by ED provider
*Pulse Oximetry
SaO2: 99
Oxygen Mode of Delivery: Room air
Patient hypoxic: no
*EKG
Interpreted by ED Provider?: Yes
Rate: normal
Rhythm: sinus
[place]: normal axis
Interval: normal interval
QRS Pattern: normal QRS
Ischemia: no ischemia
*Critical Care Note
Total Time (30-74mins, 75-104mins- exclusive of procedures): Not Applicable
<Laura John MD, Resident - Last Filed: 02/10/25 15:20>
Update Note
Update Note:
Head CT unremarkable
1:28 PM on reassessment, patient feeling much better. Dizziness is improving. CT shows postsurgical changes but no significant edema to explain her symptoms. She is eating and drinking. Urinalysis pending
3:15pm - urinalysis returned without evidence of UTI, no WBC or bacteria. discussed with patient, planning for discharge without abx. discussed importance of follow-up with providers outpatient (onc, neurosurg).
<Castro Taylor, DO - Last Filed: 02/10/25 13:29>
Update Note
Update Note:
Head CT unremarkable
1:28 PM on reassessment, patient feeling much better. Dizziness is improving. CT shows postsurgical changes but no significant edema to explain her symptoms. She is eating and drinking. Urinalysis pending
ED Attending Note
<Laura John MD, Resident - Last Filed: 02/10/25 15:20>
-
Portions of this chart may have been created with voice recognition software.� Occasional wrong word or��sound alike� substitutions may have occurred due to the inherent limitations of voice recognition software.
<Castro Taylor, DO - Last Filed: 02/10/25 13:29>
ED Attending Note
Patient seen and examined by attending physician: Yes
I performed a history and physical exam of patient and discussed management with resident, I reviewed resident's note and agree with documented findings and plan of care.: Yes
ED Attending Note:
I have seen and evaluated the patient with a [id number] encounter. I have spoken to the resident and involved in the medical history, the physical exam, medical decision making.
Evaluation and management service: agree unless noted differently below.
Results interpretation: agree unless noted differently below.
Focused HPI: 59-year-old female presenting with concern for recurrent UTI. Patient was recently discharged from the hospital where she was admitted for CAR-T cell therapy for a brain tumor. She did finish a course of antibiotics but has persistent
symptoms. Patient also felt dizzy and weak when she stood up causing her to fall. She is unsure if she hit her head. Patient just finished her dexamethasone taper a few days ago
Physical exam: Weak and frail. Dry mucous membranes. Dizziness is reproducible with left and right head movements. TMs clear. Heart regular rate and rhythm. No leg edema
Medical Decision Making: Given her brain tumor resection with recent procedure, will obtain CT head to look for any evidence of bleeding. If there is any evidence of edema, will discuss case with her neurosurgeon to decide whether or not she should
be back on dexamethasone. In meantime, will provide IV fluids and obtain urinalysis. Given the dizziness, will give dose of meclizine
Discharge Plan
Departure
Patient Disposition: Home (Routine Discharge)
Date of Disposition: 02/10/25
Time of Disposition: 15:17
Patient with high blood pressure during this ER visit?: No
Condition: Good
Covid-19: Not Applicable
Discharge Problem:
Syncope and collapse
Prescriptions:
No Action
verapamil 120 MG tablet extended release
120 mg PO HS
escitalopram oxalate [Lexapro] 10 mg Tablet
10 mg PO DAILY
rosuvastatin [Crestor] 5 mg Tablet
5 mg PO HS
cyanocobalamin (vitamin B-12) 1,000 mcg Tablet
1,000 mcg PO DAILY
ascorbic acid (vitamin C) [Vitamin C] 500 mg Tablet
500 mg PO DAILY
alprazolam [Xanax XR] 1 mg Tablet Extended Release 24 Hr
1 mg PO HS
cholecalciferol (vitamin D3) [Vitamin D3] 25 mcg (1,000 unit) Tablet
25 mcg PO DAILY
Referrals:
UNKNOWN - PT NOT,INTERVIEWE [Family Provider]
Activity Restrictions/Additional Instructions:
You were seen today in the ED after an episode of lightheadedness/fainting at home and discomfort with urination. A CT scan of your head showed no evidence of bleeding in the brain. A urinalysis demonstrated no signs of urinary tract infection. We
will discharge you without antibiotics and recommend close follow-up with your neurosurgeon (re: any contribution of steroid taper, catheter placement to the lightheadedness) and your oncologist.
Return to the ED if you have any sudden severe head pain, chest pain, or difficulty breathing.
Interventions
Interventions:
*Risk Screen - Suicide Last Done: 02/10/25 09:23
*General Assessment Last Done: 02/10/25 09:23
*Neglect/Abuse Screening Last Done: 02/10/25 09:23
*ED- Fall Risk Assessment Last Done: 02/10/25 13:09
ED- Cardiac Assessment Last Done: 02/10/25 11:30
ED- Neurological Assessment Last Done: 02/10/25 11:30
ED Swallowing Screen Last Done: 02/10/25 11:30
Discharge Date and Time
Print Language: POLISH
[2025-02-10] MEDS: ANTIVERT 25 MG PO (12:15)
[2025-02-10 12:23] LABS: Hematocrit 37.9 % (37.0-47.0); Hemoglobin 12.4 g/dL (12.0-16.0); Mean Corp Hgb Conc. 32.7 g/dL (33.0-37.0); Mean Corpuscular Volume 91.8 fL (81.0-99.0); Nucleated Red Blood Cells % 0 %; Platelet Count 137 10^3/uL (130-400); Red Cell Dist. Width 13.4 % (11.5-14.5)
[2025-02-10 12:42] LABS: ALT (SGPT) 24 U/L (0-35); AST (SGOT) 25 U/L (14-36); Albumin 4.0 g/dl (3.5-5.0); Alkaline Phosphatase 38 U/L (38-126); Blood Urea Nitrogen 17 mg/dl (7-17); Calcium 8.7 mg/dl (8.4-10.2); Carbon Dioxide 29 mmol/L (22-30); Chloride 101 mmol/L (98-107); Glucose 82 mg/dl (70-99); Potassium 3.8 mmol/L (3.5-5.1); Sodium 134 mmol/L (135-145); Total Protein 6.2 g/dl (6.3-8.2); eGFR > 60.00
[2025-02-10] MEDS: NSS 1000 IV (12:56)
[2025-02-10 14:56] LABS: Urine Character Clear (Clear)
== END 2025-02-10 15:48 | disposition home or self-care (01) ==
LOC: EMR 09:16
PROVIDERS: EMERGENCY PHYSICIAN Student in an Organized Health Care Education/Training Program
DX: R55 Syncope and collapse (principal); I11.9 Hypertensive heart disease without heart failure; R47.01 Aphasia; Z82.49 Family history of ischemic heart disease and other diseases of the circulatory system; Z87.440 Personal history of urinary (tract) infections
CPT/HCPCS: 99284; 96360; 70450; 80053; 81003; 85025; 93005